=== PATIENT | female | born 1980 ===

== ENCOUNTER 2021-01-06 11:25 | Inpatient (IN) | payer OTHER ==
[~2021-01-06] VITALS: Ht 162.6 cm; Wt 64.0 kg
[2021-01-06 12:44] LABS: BASOPHILS ABSOLUTE AUTO 0.07 K/mm3 (0.00-0.23); BASOPHILS PERCENT AUTO 1 % (0-2); EOSINOPHILS ABSOLUTE AUTO 0.02 K/mm3 (0.00-0.68); EOSINOPHILS PERCENT AUTO 0 % (0-6); Hematocrit 38.5 % (33.0-51.0); Hemoglobin 13.2 g/dL (11.5-16.0); IMMATURE GRAN ABSOLUTE AUTO 0.05 K/mm3 (0.00-0.10); IMMATURE GRAN PERCENT AUTO 1 % (0-1); LYMPHOCYTES ABSOLUTE AUTO 0.99 K/mm3 (0.84-5.20); LYMPHOCYTES PERCENT AUTO 9 % (21-46); MONOCYTES ABSOLUTE AUTO 0.68 K/mm3 (0.16-1.47); MONOCYTES PERCENT AUTO 6 % (4-13); Mean Corpuscular HGB 29.7 pg (26.0-34.0); Mean Corpuscular HGB Conc 34.3 g/dL (31.5-36.5); Mean Corpuscular Volume 87 fL (80-100); Mean Platelet Volume 11.8 fL (9.1-12.4); NEUTROPHILS ABSOLUTE AUTO 9.15 K/mm3 (1.96-9.15); NEUTROPHILS PERCENT AUTO 84 % (41-73); Platelet Count 170 K/mm3 (150-400); RDW Coefficient Variation 12.5 % (11.7-14.2); RDW Standard Deviation 39.8 fL (35.1-46.3); Red Blood Cell Count 4.44 M/mm3 (3.80-5.20); White Blood Cell Count 10.96 K/mm3 (4.00-11.30)
[2021-01-06] MEDS ORDERED: IRON18 MG (13:16)
[2021-01-06 13:37] LABS: SARS-Cov-2 (COVID-19) PCR, MMC NEGATIVE (NEGATIVE)
--- NOTE | 2021-01-07 06:25 | NUR ---
Patient is in bed attempted to Breast Feed baby.
--- NOTE | 2021-01-07 07:59 | NUR ---
PT OFFERED TO GET UP TO BRP AND SHOWER. PT DECLINES AT THIS TIME. DESIRES TO BF NB. DECLINES NEED TO VOID
--- NOTE | 2021-01-07 08:52 | NUR ---
DECLINES WANTING TO GET OUT OF BED. DENIES NEED TO VOID. PLAN TO GET PT UP AT 0915 TO USE BRP AND CLEAN BEDDING. PT EATING BREAKFAST NOW. PT VERBALIZES UNDERSTANDING
--- NOTE | 2021-01-07 09:16 | NUR ---
RN INTO ROOM TO GET PT UP TO BRP. PT SLEEPING. PT AWAKEN TO GET UP. PT REFUSED TO GET OUT OF BED AT THIS TIME. REPORTS SHE DOESN'T HAVE TO VOID AND DOESN'T WANT TO GET UP AT THIS TIME. BLADDER DOESN'T NOT PALPATE DISTENDED. LOCHIA SCANT. SHAVONNE PAD CHANGED.
--- NOTE | 2021-01-07 10:12 | NUR ---
PT OOB TO SHOWER AND BRP AFTER COAXING. PT REPORTS SHE IS ABLE TO VOID IN THE SHOWER. PT DECLINED ANY ASSISTANCE ON SELF CARE. DEMONSTRATED USE OF WITCH JOHNNA PADS. PT OBSERVES AND SAYS SHE UNDERSTANDS BUT DECLINES ANY ASSISTANCE WITH GETTING OUT OF THE SHOWER OR ASSSISTING WITH SHAVONNE CARE. BRIEFLY DISCUSSED SHAVONNE BOTTLE USE. PT VERBALIZES UNDERSTANDING
--- NOTE | 2021-01-07 18:44 | NUR ---
REVIEWED DC INSTURCTIONS. ANSWERED PT AND SUPORT PERSON QUESTIONS.
[2021-01-08 05:18] LABS: Hematocrit 27.6 % (33.0-51.0); Hemoglobin 9.5 g/dL (11.5-16.0); Mean Corpuscular HGB 30.2 pg (26.0-34.0); Mean Corpuscular HGB Conc 34.4 g/dL (31.5-36.5); Mean Corpuscular Volume 88 fL (80-100); Mean Platelet Volume 11.6 fL (9.1-12.4); Platelet Count 155 K/mm3 (150-400); RDW Coefficient Variation 12.8 % (11.7-14.2); RDW Standard Deviation 40.8 fL (35.1-46.3); Red Blood Cell Count 3.15 M/mm3 (3.80-5.20); White Blood Cell Count 15.32 K/mm3 (4.00-11.30)
[2021-01-08] MEDS ORDERED: IBU800 MG PO (11:32)
--- NOTE | 2021-01-08 14:23 | NUR ---
DC HOME WITH BABY. REVIEWED DC INSTRUCTIONS. BANDS MATCHED. FOLLOW UP SCHEDULED AND PT AWARE.
== END 2021-01-08 14:00 | disposition home or self-care (01) | DRG 807 ==
LOC: OBS 11:25 → BC 11:26 → OBS 11:55 → BC 11:58
PROVIDERS: ADMIT Nurse Practitioner Obstetrics & Gynecology
PROC: 10D07Z6 Extraction of Products of Conception, Vacuum, Via Natural or Artificial Opening (ICD-10-PCS; principal; 2021-01-07)
PROC: 0KQM0ZZ Repair Perineum Muscle, Open Approach (ICD-10-PCS; 2021-01-07)
PROC: 00HU33Z Insertion of Infusion Device into Spinal Canal, Percutaneous Approach (ICD-10-PCS; 2021-01-07)
PROC: 3E0R3BZ Introduction of Anesthetic Agent into Spinal Canal, Percutaneous Approach (ICD-10-PCS; 2021-01-07)
DX: O76 Abnormality in fetal heart rate and rhythm complicating labor and delivery (principal); Z37.0 Single live birth; O70.1 Second degree perineal laceration during delivery; Z20.822 Contact with and (suspected) exposure to COVID-19; Z3A.38 38 weeks gestation of pregnancy; Z67.10 Type A blood, Rh positive
CPT/HCPCS: 36415; 51702; 59025; 85025; 85027; 86850; 86900; 86901; A9270; J1885; J2001; J2210; J2590; J3010; J7120; U0004